=== PATIENT | male | born 1960 | race American Indian/Alaskan Native ===

== ENCOUNTER 2019-06-15 05:58 | Day surgery (SDC) | payer BC, MEDICARE ==
[~2019-06-15 05:58] MED LIST: BUPIVACAINE/PF (0.5%) 5 MG/1 ML 10 ML VIAL INFILTRATI ONE
[2019-06-15] MEDS ORDERED: SODIUM CHLORIDE 0.9% 1000 ML 1,000 ML IV SCH (06:45)
[2019-06-15] MEDS ORDERED: BACTERIOSTATIC SODIUM CHLORIDE 0.9% 30 ML VIAL INFILTRATI ONE (06:47)
[2019-06-15 07:11] LABS: Hematocrit 44.3 % (35.5-45.6); Hemoglobin 14.1 gm/dl (11.8-15.2); Mean Corpuscular HGB Conc 32 % (32-34); Mean Corpuscular Volume 93 fl (84-94); Platelet Count 158 K/mm3 (140-440); Red Blood Count 4.77 M/mm3 (3.65-5.03)
[2019-06-15] MEDS ORDERED: PROTAMINE SULFATE 50 MG/5 ML INJ ONE (07:11)
[2019-06-15] MEDS ORDERED: HEPARIN 10,000 UNITS/10 ML VIAL ONE (07:11)
[2019-06-15] MEDS ORDERED: SODIUM CHLORIDE P/F VIAL 10 ML 10 ML ONE (07:11)
[2019-06-15] MEDS ORDERED: LIDOCAINE (1%) 10 MG/1 ML VIAL 20 ML MDV ONE (07:11)
[2019-06-15] MEDS ORDERED: BUPIVACAINE/PF (0.5%) 5 MG/1 ML 30 ML VIAL INFILTRATI ONE (07:11)
[2019-06-15] MEDS ORDERED: rifAMPin 600 MG VIAL ONE (07:12)
[2019-06-15] MEDS ORDERED: SODIUM CHLORIDE 0.9% 500 ML 500 ML ONE (07:12)
[2019-06-15] MEDS ORDERED: ONDANSETRON 4 MG/2 ML INJ IV PRN (07:13)
[2019-06-15] MEDS ORDERED: fentaNYL 100 MCG/2 ML INJ IV PRN (07:13)
--- NOTE | 2019-06-15 07:13 | Anesthesia Day of Surgery ---
Anesthesia Day of Surgery - Day of Surgery Patient Examined: Yes Patient H&P Reviewed: Yes Patient is NPO: Yes
[2019-06-15] MEDS ORDERED: MIDAZOLAM 2 MG/2 ML INJ IV NR (07:14)
--- NOTE | 2019-06-15 07:15 | Anesthesia Consultation ---
Anesthesia Consult and Med Hx Date of service: 06/15/19 - Airway Anesthetic Teeth Evaluation: Good (Missing), Dentures (Upper) ROM Head & Neck: Adequate Mental/Hyoid Distance: Adequate Mallampati Class: Class II Intubation Access Assessment: Good - Pre-Operative Health Status ASA Pre-Surgery Classification: ASA3 Proposed Anesthetic Plan: General - Pulmonary Hx Smoking: No Hx Sleep Apnea: No (CRUZ PRE SCREEN HIGH RISK.) - Cardiovascular System Hx Hypertension: Yes (X 10 YRS) - Endocrine Hx Renal Disease: Yes Hx End Stage Renal Disease: Yes (Last HD yesterday. Tx; kidney failed) Hx Non-Insulin Dependent Diabetes: No ( Tx-2015) - Hematic Hx Anemia: Yes - Other Systems Hx Substance Use: Yes (OCC MARIJUANA) Hx Cancer: No
[2019-06-15] MEDS ORDERED: FAMOTIDINE 20 MG/2 ML INJ IV NR (07:16)
[2019-06-15 07:21] LABS: Calcium 9.4 mg/dL (8.4-10.2)
[2019-06-15] MEDS ORDERED: ceFAZolin/STERILE WATER 2 GM/20 ML SYRINGE IV NR (08:00)
[2019-06-15 08:04] LABS: Red Cell Distribution Width 24.2 % (13.2-15.2)
[2019-06-15] MEDS ORDERED: LIDOCAINE MPF (2%) 20 MG/1 ML VIAL 5 ML ONE (08:08)
[2019-06-15] MEDS ORDERED: PROPOFOL 200 MG/20 ML VIAL IV ONE (08:08)
[2019-06-15] MEDS ORDERED: fentaNYL 100 MCG/2 ML INJ ONE (08:08)
[2019-06-15] MEDS ORDERED: HYDROmorphone 1 MG/1 ML INJ ONE (08:48)
[2019-06-15] MEDS ORDERED: SODIUM CHLORIDE 0.9% 500 ML IVPB IV ONE (08:50)
[2019-06-15] MEDS ORDERED: HEPARIN 10,000 UNITS/10 ML VIAL IV ONE (08:50)
[2019-06-15] MEDS ORDERED: ePHEDrine SULFATE 50 MG/1 ML INJ ONE (08:58)
[2019-06-15] MEDS ORDERED: SODIUM CHLORIDE 0.9% 100 ML ONE (08:59)
[2019-06-15 09:07] LABS: Basophils % (Manual) 0 % (0.0-1.8); Total Cells Counted 100
[2019-06-15 09:08] LABS: Anisocytosis 2+; Burr Cells 1+; Hypochromasia Few; Target Cells Few
[2019-06-15 09:09] LABS: Platelet Estimate Consistent w Auto; Schistocytes Few
[2019-06-15] MEDS ORDERED: PHENYLEPHRINE/NS 1,000 MCG/10 ML SYRINGE (OR USE) IV ONE (09:21)
[2019-06-15] MEDS ORDERED: BUPIVACAINE/PF (0.5%) 5 MG/1 ML 10 ML VIAL INFILTRATI ONE ×2 (09:23)
[2019-06-15] MEDS ORDERED: ONDANSETRON 4 MG/2 ML INJ ONE (09:30)
--- NOTE | 2019-06-15 09:36 | Short Stay Summary ---
Short Stay Documentation Date of service: 06/15/19 Narrative H&P: See H&P - History H&P: obtained from office - Allergies and Medications Current Medications: Allergies No Known Allergies Allergy (Verified 06/07/19 15:36) Home Medications Medication Instructions Recorded Confirmed Last Taken Type Calcium Acetate [Phoslo] 667 mg PO TID 06/07/19 06/15/19 06/14/19 History NIFEdipine [Nifedipine ER] 90 mg PO DAILY 06/07/19 06/15/19 06/15/19 03:00 History Active Medications Cefazolin Sodium (Ancef/Sterile Water 2 Gm/20 Ml) 2 gm IV PREOP NR Stop: 06/15/19 16:00 Famotidine (Pepcid) 20 mg IV PREOP NR Stop: 06/15/19 14:00 Last Admin: 06/15/19 07:45 Dose: 20 mg Documented by: Fentanyl (Sublimaze) 50 mcg IV Q5MIN PRN PRN Reason: Pain , Severe (7-10) Stop: 06/15/19 20:00 Sodium Chloride (Nacl 0.9% 1000 Ml) 1,000 mls @ 42 mls/hr IV DIRECT CLARIBEL Last Admin: 06/15/19 07:18 Dose: 42 mls/hr Documented by: Midazolam HCl (Versed) 2 mg IV ONCE NR Stop: 06/15/19 14:00 Last Admin: 06/15/19 07:35 Dose: 2 mg Documented by: Ondansetron HCl (Zofran) 4 mg IV ONCE PRN PRN Reason: Nausea And Vomiting Stop: 06/15/19 14:00 - Brief post op/procedure progress note Date of procedure: 06/15/19 Pre-op diagnosis: End-Stage Renal Disease Post-op diagnosis: same Procedure: Creation of Left Liliya Arteriovenous Fistula Anesthesia: GETA, local Surgeon: SOCRATES MAX Estimated blood loss: minimal Pathology: none Condition: stable - Disposition Condition at discharge: Good Disposition: DC-01 TO HOME OR SELFCARE Short Stay Discharge Plan Activity: other (No heavy lifting left arm for 2 weeks. Use stress ball with less than as frequently as possible.) Wound: open to air, keep clean and dry, other (Okay to wash the incision with soap and water but do not soak in water) Follow up with: SOCRATES MAX MD [Staff Physician] - 14 Days Prescriptions: HYDROcodone/APAP 7.5-325 [[place] 7.5/325] 1 each PO Q6HR PRN #40 tablet PRN Reason: Pain
--- NOTE | 2019-06-15 09:38 | Operative Report ---
Operative Report Operative Report: Date of procedure: 06/15/2019 Pre-operative diagnosis: End-Stage Renal Disease Post-operative diagnosis: End-Stage Renal Disease Procedure(s): Creation of Left Liliya Fistula Surgeon: Eric Hughes MD Onion Tier: None Anesthesia: General Endotracheal Anesthesia EBL: Minimal Counts: Correct Complications: None Condition: Stable Findings: Successful creation of left arm AV fistula Specimen: None Indication: The patient is a 58-year-old male with a history of end-stage renal disease with a previous kidney and pancreas transplant. 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 He is in need of long-term dialysis access was found to be a suitable candidate for creation of a left arm arteriovenous. He was given the risks, benefits, and alternative procedures and consented to the procedure. Description of Procedure: The patient was brought to the operating room and laid in supine position after general endotracheal anesthesia was achieved his left arm was prepped and draped in normal sterile fashion. Longitudinal incision was then created on the distal wrist centered over the cephalic vein and a second incision was created in longitudinal fashion over the radial artery. The radial artery was dissected out circumferentially and controlled with vessel loops. The cephalic vein was then dissected out circumferentially, ligating side branches and dividing them, and then a tunnel was created to transpose it over to the radial artery. A 3 Michelle was then advanced through the cephalic vein proximally to ensure patency. The vein was then flushed with heparinized saline and control of the bulldog clamp. The radial artery vessel loops were put on tension occluding flow, and then an 11 blade and Davis scissors used to create an arteriotomy. An [id number] anastomosis created between the cephalic vein and the radial artery using a single 6-0 Prolene in running fashion. Prior to completing the anastomosis I flushed the artery both retrograde and antegrade and advanced a 3 Michelle into the proximal portion of the artery to break the spasm. I then completed the anastomosis and removed all clamps allowing flow into the fistula which had an adequate thrill. I anesthetized wound using 0.5% Marcaine plain. Then closed the wounds in 2 layers using a 3-0 Vicryl running fashion the deep dermal layer, 4-0 Monocryl in a running fashion the subcuticular layer, and Dermabond as a dressing. The patient tolerated the procedure well, all sponge, needle, and instrument counts were correct, the patient was taken to recovery in stable condition.
[2019-06-15] MEDS ORDERED: HEPARIN 1,000 UNIT/1 ML VIAL IV ONE (09:57)
[2019-06-15] MEDS ORDERED: HEPARIN 5,000 UNIT/1 ML VIAL ONE (09:59)
[2019-06-15] MEDS ORDERED: HEPARIN 5,000 UNIT/1 ML VIAL SUB-Q ONE (10:30)
[2019-06-15 11:56] VITALS: BP 140/80
--- NOTE | 2019-06-15 15:03 | Post Anesthesia Evaluation ---
- Post Anesthesia Evaluation Patient Participated: Yes Airway Patent: Yes Stable Respiratory Function: Yes Nausea/Vomiting: No Temp > 96.8F: Yes Pain Manageable: Yes Adequeate Hydration: Yes Anesthesia Complications: No Block Receding Appropriately: Not Applicable Patient on Ventilator: No
== END 2019-06-15 05:59 | disposition home or self-care (01) ==
LOC: OR 05:58
PROVIDERS: ATTEND Surgery Vascular Surgery
DX: I12.0 Hypertensive chronic kidney disease with stage 5 chronic kidney disease or end stage renal disease (principal); E11.22 Type 2 diabetes mellitus with diabetic chronic kidney disease; N18.6 End stage renal disease; Z94.0 Kidney transplant status; Z94.83 Pancreas transplant status; Z79.899 Other long term (current) drug therapy; E78.00 Pure hypercholesterolemia, unspecified; Z99.2 Dependence on renal dialysis; Z90.5 Acquired absence of kidney; Z98.890 Other specified postprocedural states; Z86.2 Personal history of diseases of the blood and blood-forming organs and certain disorders involving the immune mechanism
CPT/HCPCS: 36415; 36818; 80048; 82803; 82962; 85007; 85025; C1757; J0690; J1170; J1644; J2250; J2370; J2405; J2704; J3010; J7030; J7040; J2720; J3490

== ENCOUNTER 2020-12-22 06:27 | Observation (INO) | payer BC, MEDICARE ==
[2020-12-22 09:12] LABS: INR 1.02 (0.87-1.13); Partial Thromboplastin Time 25.2 Sec. (24.2-36.6)
[2020-12-22 09:17] LABS: Calcium 9.4 mg/dL (8.4-10.2)
[2020-12-22 09:29] LABS: Basophils % (Auto) 0.3 % (0.0-1.8); Eosinophils # (Auto) 0.1 K/mm3 (0.0-0.4); Eosinophils % (Auto) 1.6 % (0.0-4.3); Hematocrit 52.7 % (35.5-45.6); Hemoglobin 17.3 gm/dl (11.8-15.2); Lymphocytes # (Auto) 1.3 K/mm3 (1.2-5.4); Lymphocytes % (Auto) 30.3 % (13.4-35.0); Mean Corpuscular HGB Conc 33 % (32-34); Mean Corpuscular Volume 107 fl (84-94); Monocytes # (Auto) 0.6 K/mm3 (0.0-0.8); Monocytes % (Auto) 13.6 % (0.0-7.3); Platelet Count 229 K/mm3 (140-440); Red Blood Count 4.91 M/mm3 (3.65-5.03); Red Cell Distribution Width 16.5 % (13.2-15.2)
[2020-12-22] MEDS ORDERED: INSULIN REGULAR, HUMAN 100 UNITS/1 ML IV ONE (09:57)
--- NOTE | 2020-12-22 09:57 | Emergency Department Report ---
ED General Adult HPI - General Chief complaint: Medical Clearance Stated complaint: CLOGGED PORT FOR DIALYSIS Time Seen by Provider: 12/22/20 09:17 Source: patient Mode of arrival: Ambulatory Limitations: No Limitations - History of Present Illness Initial comments: 60-year-old male, history of ESRD, status post previous kidney and pancreas transplant, presents to ED for evaluation. Patient is on a dialysis schedule. Was last dialyzed 2 days ago on . Patient went for dialysis today and dialysis nurse was unable to access his fistula. Stated that it was clotted and patient needed to come to the ER. Patient has no complaints. Fistula has palpable thrill. -: unknown Location: left, upper extremity Quality: other (Painless) Consistency: constant Improves with: none Worsens with: none Associated Symptoms: denies other symptoms Treatments Prior to Arrival: none - Related Data Home Medications Medication Instructions Recorded Confirmed Last Taken Calcium Acetate [Phoslo] 667 mg PO TID 06/07/19 06/15/19 06/14/19 NIFEdipine [Nifedipine ER] 90 mg PO DAILY 06/07/19 06/15/19 06/15/19 03:00 Previous Rx's Medication Instructions Recorded Last Taken Type HYDROcodone/APAP 7.5-325 [[place] 1 each PO Q6HR PRN #40 tablet 06/15/19 Unknown R x 7.5/325] Allergies Allergy/AdvReac Type Severity Reaction Status Date / Time No Known Allergies Allergy Verified 06/07/19 15:36 ED Review of Systems ROS: Stated complaint: CLOGGED PORT FOR DIALYSIS Other details as noted in HPI Comment: All other systems reviewed and negative Constitutional: denies: fever Gastrointestinal: denies: nausea, vomiting ED Past Medical Hx - Past Medical History Previous Medical History?: Yes Hx Hypertension: Yes (X 10 YRS) Hx Diabetes: Yes (OFF MEDS SINCE PANCREAS TRANSPLANT-2014) Hx Renal Disease: Yes (HD [id number]) Hx HIV: No - Surgical History Past Surgical History?: Yes Additional Surgical History: Left arm fistula, Kidney transplant, Pancreas transplant - Social History Smoking Status: Never Smoker Substance Use Type: Alcohol - Medications Home Medications: Home Medications Medication Instructions Recorded Confirmed Last Taken Type Calcium Acetate [Phoslo] 667 mg PO TID 06/07/19 06/15/19 06/14/19 History NIFEdipine [Nifedipine ER] 90 mg PO DAILY 06/07/19 06/15/19 06/15/19 03:00 History HYDROcodone/APAP 7.5-325 [[place] 1 each PO Q6HR PRN #40 tablet 06/15/19 Unknown Rx 7.5/325] ED Physical Exam - General Limitations: No Limitations General appearance: alert, in no apparent distress - Head Head exam: Present: atraumatic, normocephalic - Eye Eye exam: Present: normal appearance, EOMI - ENT ENT exam: Present: mucous membranes moist - Neck Neck exam: Present: normal inspection - Respiratory Respiratory exam: Present: normal lung sounds bilaterally. Absent: respiratory distress - Cardiovascular Cardiovascular Exam: Present: regular rate, normal rhythm, other (Palpable thrill in left arm fistula) - GI/Abdominal GI/Abdominal exam: Present: soft. Absent: distended, tenderness - Extremities Exam Extremities exam: Present: normal inspection - Neurological Exam Neurological exam: Present: alert, oriented X3 - Psychiatric Psychiatric exam: Present: normal affect, normal mood - Skin Skin exam: Present: warm, dry, intact, normal color ED Course Vital Signs 12/22/20 12/22/20 12/22/20 07:25 09:20 09:31 Temperature 98.2 F Pulse Rate 74 68 69 Respiratory 20 15 17 Rate Blood Pressure 111/73 108/69 O2 Sat by Pulse 99 Oximetry 12/22/20 12/22/20 12/22/20 09:45 10:01 10:15 Temperature Pulse Rate 67 67 69 Respiratory 20 18 11 L Rate Blood Pressure 108/69 110/66 110/66 O2 Sat by Pulse 98 97 100 Oximetry 12/22/20 12/22/20 12/22/20 10:31 10:45 11:30 Temperature 97.2 F L Pulse Rate 74 75 74 Respiratory 18 13 16 Rate Blood Pressure 110/66 110/66 106/65 O2 Sat by Pulse 77 L Oximetry 12/22/20 12/22/20 12/22/20 11:45 12:00 12:15 Temperature Pulse Rate 72 75 81 Respiratory Rate Blood Pressure 113/68 112/66 110/72 O2 Sat by Pulse Oximetry 12/22/20 12/22/20 12/22/20 12:30 12:45 13:00 Temperature Pulse Rate 89 88 90 Respiratory Rate Blood Pressure 104/66 107/64 113/64 O2 Sat by Pulse Oximetry - Reevaluation(s) Reevaluation #1: 12/22/20 09:57 Blood sample not hemolyzed per superintendent geophysical laboratory. Reevaluation #2: 12/22/20 11:12 Dialysis nurse evaluated patient's fistula. There is a palpable thrill and audible thrill. States he will be able to be dialyzed. She will take patient to be dialyzed at this time. - Consultations Consultation #1: 12/22/20 10:[address] Duncan, nephrology. She will see the patient. Consultation #2: 12/22/20 10:[address] Ag, vascular surgery. He will see the patient. ED Medical Decision Making - Lab Data Result diagrams: 12/22/20 08:11 12/22/20 08:11 - Medical Decision Making 60-year-old male, history of ESRD, status post previous kidney and pancreas transplant, presents to ED for evaluation. Patient is on a dialysis schedule. Was last dialyzed 2 days ago on . Patient went for dialysis today and dialysis nurse was unable to access his fistula. Stated that it was clotted and patient needed to come to the ER. Patient has no complaints. Fistula has palpable thrill. Patient states he has not missed any dialysis appointments, however potassium is 6.8. Lab states no hemolysis present. Insulin, D50, calcium chloride, Kayexalate ordered. I spoke with repair manager to get patient dialyzed. I spoke with Dr. Ag, vascular surgeon. Fistula has palpable thrill. Dialysis n muriel has come down to evaluate patient and believes he will be able to be dialyzed. Patient will be admitted by hospitalist, Dr. Calvo, for further management. - Differential Diagnosis Hyperkalemia, dialysis access malfunction Critical Care Time: Yes Critical care time in (mins) excluding proc time.: 35 Critical care attestation.: If time is entered above; I have spent that time in minutes in the direct care of this critically ill patient, excluding procedure time. Critical Care Time: 35 min ED Disposition Clinical Impression: Hyperkalemia, ESRD needing dialysis, Dialysis AV fistula malfunction Disposition: OP ADMIT IP TO THIS HOSP Is pt being admited?: Yes Condition: Stable Referrals: PRIMARY CARE, [Primary Care Provider] - 3-5 Days Time of Disposition: 10:49
[2020-12-22] MEDS ORDERED: DEXTROSE 50% IN WATER (25GM) 50 ML SYRINGE IV ONE (09:58)
[2020-12-22] MEDS ORDERED: SODIUM POLYSTYRENE 15 GM/60 ML ORAL LIQD PO ONE (10:05)
[2020-12-22] MEDS ORDERED: CALCIUM GLUCONATE 1,000 MG in SODIUM CHLORIDE 0.9% 100 ML IV ONE (11:00)
[2020-12-22] MEDS ORDERED: SODIUM CHLORIDE 0.9% 100 ML IV PRN ×2 (11:27→14:48)
[2020-12-22 12:38] LABS: Hepatitis B Surface Antigen Non-Reactive (Negative); Hepatitis C Virus Antibody Non-Reactive (NonReactive)
--- NOTE | 2020-12-22 20:03 | Consultation ---
History of Present Illness - Reason for Consult Consult date: 12/22/20 end stage renal disease, hyperkalemia - History of Present Illness This is a 60-year-old man with end-stage renal disease on hemodialysis who presented to his dialysis unit today for routine dialysis and was sent to the emergency department as he were unable to cannulate his access. Upon presentation to the emergency department he was noted to have severe hyperkalemia. Nephrology was consulted for ESRD management. Patient denies chest pain, diaphoresis, presyncope and syncope Medications and Allergies Allergies Allergy/AdvReac Type Severity Reaction Status Date / Time No Known Allergies Allergy Verified 06/07/19 15:36 Home Medications Medication Instructions Recorded Confirmed Last Taken Type Calcium Acetate [Phoslo] 667 mg PO TID 06/07/19 06/15/19 06/14/19 History NIFEdipine [Nifedipine ER] 90 mg PO DAILY 06/07/19 06/15/19 06/15/19 03:00 History HYDROcodone/APAP 7.5-325 [[place] 1 each PO Q6HR PRN #40 tablet 06/15/19 Unknown Rx 7.5/325] Active Meds: Active Medications Sodium Chloride (Nacl 0.9%) 100 mls @ 999 mls/hr IV SAW PRN PRN Reason: Hypotension Sodium Chloride (Nacl 0.9%) 100 mls @ 999 mls/hr IV SAW PRN PRN Reason: Hypotension Pneumococcal Polyvalent Vaccine (Pneumococcal 23 Valent 0.5 Ml Vial) 0.5 ml IM .ONCE ONE Stop: 12/23/20 12:01 Review of Systems Constitutional: no fever Ears, nose, mouth and throat: no nasal congestion, no nasal discharge Cardiovascular: no chest pain, no orthopnea Respiratory: no shortness of breath Gastrointestinal: no nausea, no vomiting Musculoskeletal: no muscle weakness, no muscle cramps Integumentary: no rash, no pruritis Neurological: no weakness, no parathesias Psychiatric: no memory loss Hematologic/Lymphatic: no easy bruising, no easy bleeding Allergic/Immunologic: no wheezing Exam - Vital Signs Vital signs: Vital Signs Temp Pulse Resp BP Pulse Ox 98.2 F 74 20 111/73 99 12/22/20 07:25 12/22/20 07:25 12/22/20 07:25 12/22/20 07:25 12/22/20 07:25 - Physical Exam Narrative exam: General: No acute distress HEENT: Oral mucosa moist Neck: Supple, no JVD Chest: Clear to auscultation bilaterally Heart: RRR, S1 and S2, no pericardial rub Abdomen: Soft, nontender, no renal bruit Extremity: No peripheral cyanosis, edema Neurological: Alert, awake, no asterixis Dermatology: No skin rash Psych: No agitation Musculoskeletal: No joint effusion Results - Lab Results 12/22/20 08:11 12/22/20 18:36 Most recent lab results Calcium 9.4 mg/dL (8.4-10.2) 12/22/20 08:11 Assessment and Plan Assessment - End-stage renal disease on hemodialysis - Hyperkalemia - Hyponatremia - Hyperparathyroidism - Hyperphosphatemia Recommendations - HD nurse was able to cannulate access without issues, seen during dialysis - Monitor labs and volume status daily and assess need for additional dialysis session - No indication for Epogen with HD - Continue phosphorus binders if applicable - ESRD diet with 1.4 g/kg per day protein - Renally dose medication for creatinine clearance less than 15 cc/min
[2020-12-22 21:56] VITALS: BP 82/53
--- NOTE | 2020-12-22 22:40 | History and Physical Report ---
History of Present Illness Date of examination: 12/22/20 Date of admission: 12/22/20 14:20 Chief complaint: AV fistula not accessible-has missed dialysis History of present illness: 60-year-old male with history of end-stage renal disease status post kidney transplant and pancreatic transplant comes in for emergency room for hemodialysis. Patient missed hemodialysis because his the hemodialysis nurse was unable to access his fistula. Patient states that he was clotted and needed to come to the ER. In the ER fistula could be accessed. Patient underwent hemodialysis - Past Medical History Previous Medical History?: Yes Hx Hypertension: Yes (X 10 YRS) Hx Diabetes: Yes (OFF MEDS SINCE PANCREAS TRANSPLANT-2014) Hx Renal Disease: Yes (HD ) post access of the fistula. - Surgical History Past Surgical History?: Yes Additional Surgical History: Left arm fistula, Kidney transplant, Pancreas transplant - Social History Smoking Status: Never Smoker Substance Use Type: Alcohol - Medications Home Medications: Home Medications Medication Instructions Recorded Confirmed Last Taken Type Calcium Acetate [Phoslo] 667 mg PO TID 06/07/19 06/15/19 06/14/19 History NIFEdipine [Nifedipine ER] 90 mg PO DAILY 06/07/19 06/15/19 06/15/19 03:00 History HYDROcodone/APAP 7.5-325 [[place] 1 each PO Q6HR PRN #40 tablet 06/15/19 Unknown Rx 7.5/325] Review of Systems ROS: Stated complaint: CLOGGED PORT FOR DIALYSIS Other details as noted in HPI Comment: All other systems reviewed and negative Constitutional: denies: fever Gastrointestinal: denies: nausea, vomiting Medications and Allergies Allergies Allergy/AdvReac Type Severity Reaction Status Date / Time No Known Allergies Allergy Verified 06/07/19 15:36 Home Medications Medication Instructions Recorded Confirmed Last Taken Type Calcium Acetate [Phoslo] 667 mg PO TID 06/07/19 06/15/19 06/14/19 History NIFEdipine [Nifedipine ER] 90 mg PO DAILY 06/07/19 06/15/19 06/15/19 03:00 History HYDROcodone/APAP 7.5-325 [[place] 1 each PO Q6HR PRN #40 tablet 06/15/19 Unknown Rx 7.5/325] Active Meds: Active Medications Sodium Chloride (Nacl 0.9%) 100 mls @ 999 mls/hr IV SAW PRN PRN Reason: Hypotension Sodium Chloride (Nacl 0.9%) 100 mls @ 999 mls/hr IV SAW PRN PRN Reason: Hypotension Pneumococcal Polyvalent Vaccine (Pneumococcal 23 Valent 0.5 Ml Vial) 0.5 ml IM .ONCE ONE Stop: 12/23/20 12:01 Exam - Constitutional Vitals: Temp Pulse Resp BP Pulse Ox 98.3 F 90 18 82/53 97 12/22/20 21:55 12/22/20 21:55 12/22/20 21:55 12/22/20 21:55 12/22/20 21:55 General appearance: Present: no acute distress, well-nourished - EENT Eyes: Present: PERRL ENT: hearing intact, clear oral mucosa - Neck Neck: Present: supple, normal ROM - Respiratory Respiratory effort: normal Respiratory: bilateral: CTA - Cardiovascular Heart rate: 78 Heart Sounds: Present: S1 & S2. Absent: rub, click - Extremities Extremities: pulses symmetrical, No edema Peripheral Pulses: within normal limits - Abdominal General gastrointestinal: Present: soft, non-tender, non-distended, normal bowel sounds Male genitourinary: Present: normal - Integumentary Integumentary: Present: clear, warm, dry - Musculoskeletal Musculoskeletal: gait normal, strength equal bilaterally - Psychiatric Psychiatric: appropriate mood/affect, intact judgment & insight - Neurologic Neurologic: CNII-XII intact, moves all extremities Results - Labs CBC & Chem 7: 12/22/20 08:11 12/22/20 18:36 Labs: Laboratory Last Values WBC 4.3 K/mm3 (4.5-11.0) L 12/22/20 08:11 RBC 4.91 M/mm3 (3.65-5.03) 12/22/20 08:11 Hgb 17.3 gm/dl (11.8-15.2) H 12/22/20 08:11 Hct 52.7 % (35.5-45.6) H 12/22/20 08:11 MCV 107 fl (84-94) H 12/22/20 08:11 MCH 35 pg (28-32) H 12/22/20 08:11 MCHC 33 % (32-34) 12/22/20 08:11 RDW 16.5 % (13.2-15.2) H 12/22/20 08:11 Plt Count 229 K/mm3 (140-440) 12/22/20 08:11 Lymph % (Auto) 30.3 % (13.4-35.0) 12/22/20 08:11 [place] % (Auto) 13.6 % (0.0-7.3) H 12/22/20 08:11 Eos % (Auto) 1.6 % (0.0-4.3) 12/22/20 08:11 Baso % (Auto) 0.3 % (0.0-1.8) 12/22/20 08:11 Lymph # (Auto) 1.3 K/mm3 (1.2-5.4) 12/22/20 08:11 [place] # (Auto) 0.6 K/mm3 (0.0-0.8) 12/22/20 08:11 Eos # (Auto) 0.1 K/mm3 (0.0-0.4) 12/22/20 08:11 Baso # (Auto) 0.0 K/mm3 (0.0-0.1) 12/22/20 08:11 Seg Neutrophils % 54.2 % (40.0-70.0) 12/22/20 08:11 Seg Neutrophils # 2.3 K/mm3 (1.8-7.7) 12/22/20 08:11 PT 13.9 Sec. (12.2-14.9) 12/22/20 08:11 INR 1.02 (0.87-1.13) 12/22/20 08:11 APTT 25.2 Sec. (24.2-36.6) 12/22/20 08:11 Sodium 134 mmol/L (137-145) L 12/22/20 08:11 Potassium 5.0 mmol/L (3.6-5.0) D 12/22/20 18:36 Chloride 89.7 mmol/L (98-107) L 12/22/20 08:11 Carbon Dioxide 25 mmol/L (22-30) 12/22/20 08:11 Anion Gap 26 mmol/L 12/22/20 08:11 BUN 55 mg/dL (9-20) H 12/22/20 08:11 Creatinine 15.6 mg/dL (0.8-1.3) H 12/22/20 08:11 Estimated GFR 4 ml/min 12/22/20 08:11 BUN/Creatinine Ratio 4 % 12/22/20 08:11 Glucose 115 mg/dL (75-100) H 12/22/20 08:11 Calcium 9.4 mg/dL (8.4-10.2) 12/22/20 08:11 Hepatitis A IgM Ab Non-reactive (NonReactive) 12/22/20 11:34 Hep Bs Antigen Non-reactive (Negative) 12/22/20 11:34 Hep B Core IgM Ab Non-reactive (NonReactive) 12/22/20 11:34 Hepatitis C Antibody Non-reactive (NonReactive) 12/22/20 11:34 Short CBC 12/22/20 Range/Units 08:11 WBC 4.3 L (4.5-11.0) K/mm3 Hgb 17.3 H (11.8-15.2) gm/dl Hct 52.7 H (35.5-45.6) % Plt Count 229 (140-440) K/mm3 BMP 12/22/20 12/22/20 08:11 18:36 Sodium 134 L Potassium 6.8 H* 5.0 D Chloride 89.7 L Carbon Dioxide 25 BUN 55 H Creatinine 15.6 H Glucose 115 H Calcium 9.4 Assessment and Plan Assessment and plan: Full code Advance Directives: Yes (Full code) VTE prophylaxis?: Chemical Plan of care discussed with patient/family: Yes - Patient Problems (1) Dialysis AV fistula malfunction Current Visit: Yes Status: Acute Qualifiers: Encounter type: initial encounter Qualified Code(s): T82.590A - Other mechanical complication of surgically created arteriovenous fistula, initial encounter Plan to address problem: Patient's AV fistula could be accessed Patient is going for hemodialysis (2) Hypertension Current Visit: Yes Status: Chronic Qualifiers: Hypertension type: essential hypertension Qualified Code(s): I10 - Essential (primary) hypertension Plan to address problem: Continue antihypertensives and adjust medications (3) T2DM (type 2 diabetes mellitus) Current Visit: Yes Status: Chronic Qualifiers: Diabetes mellitus senior care insulin use: unspecified director long term care insulin use status Plan to address problem: Coverage for now (4) ESRD needing dialysis Current Visit: Yes Status: Chronic Plan to address problem: Dialysis requested (5) DVT prophylaxis Current Visit: Yes Status: Acute Plan to address problem: Patient on heparin and GI prophylaxis
--- NOTE | 2020-12-22 22:46 | Discharge Summary ---
Providers - Providers Date of Admission: 12/22/20 14:20 Date of discharge: 12/22/20 Attending physician: CARLI WILCOX 12/22/20 10:45 Consult to Physician [CONS] Stat Comment: Consulting Provider: KARIN DENG Physician Instructions: Reason For Exam: hyperkalemia 12/22/20 10:50 Consult to Physician [CONS] Stat Comment: Consulting Provider: CHENG MAGAÑA Physician Instructions: Reason For Exam: fistula malfunction Primary care physician: [employer] Hospitalization Condition: Stable Hospital course: History of present illness: 60-year-old male with history of end-stage renal disease status post kidney transplant and pancreatic transplant comes in for emergency room for hemodialysis. Patient missed hemodialysis because his the hemodialysis nurse was unable to access his fistula. Patient states that he was clotted and needed to come to the ER. In the ER fistula could be accessed. Patient underwent hemodialysis Assessment and Plan Assessment and plan: Full code Advance Directives: Yes (Full code) VTE prophylaxis?: Chemical Plan of care discussed with patient/family: Yes - Patient Problems (1) Dialysis AV fistula malfunction Current Visit: Yes Status: Acute Qualifiers: Encounter type: initial encounter Qualified Code(s): T82.590A - Other mechanical complication of surgically created arteriovenous fistula, initial encounter Plan to address problem: Patient's AV fistula could be accessed Patient is going for hemodialysis (2) Hypertension Current Visit: Yes Status: Chronic Qualifiers: Hypertension type: essential hypertension Qualified Code(s): I10 - Essential (primary) hypertension Plan to address problem: Continue antihypertensives and adjust medications (3) T2DM (type 2 diabetes mellitus) Current Visit: Yes Status: Chronic Qualifiers: Diabetes mellitus exterminator helper termite insulin use: unspecified exterminator helper termite insulin use status Plan to address problem: Coverage for now (4) ESRD needing dialysis Current Visit: Yes Status: Chronic Plan to address problem: Dialysis requested (5) DVT prophylaxis Current Visit: Yes Status: Acute Plan to address problem: Patient on heparin and GI prophylaxis Disposition: TO HOME OR SELFCARE Final Discharge Diagnosis (Prints w/discharge instructions): AV fistula malfunction. End-stage renal disease needing hemodialysis. Hyperkalemia. Htn - Discharge Diagnoses (1) Dialysis AV fistula malfunction Status: Acute Qualifiers: Encounter type: initial encounter Qualified Code(s): T82.590A - Other mechanical complication of surgically created arteriovenous fistula, initial encounter (2) Hypertension Status: Chronic Qualifiers: Hypertension type: essential hypertension Qualified Code(s): I10 - Essential (primary) hypertension (3) T2DM (type 2 diabetes mellitus) Status: Chronic Qualifiers: Diabetes mellitus exterminator helper termite insulin use: unspecified alf insulin use status (4) ESRD needing dialysis Status: Chronic (5) DVT prophylaxis Status: Acute Core Measure Documentation - Palliative Care Palliative Care/ Comfort Measures: Not Applicable - Core Measures Any of the following diagnoses?: none Exam - Constitutional Vitals: Temp Pulse Resp BP Pulse Ox 98.3 F 90 18 82/53 97 12/22/20 21:55 12/22/20 21:55 12/22/20 21:55 12/22/20 21:55 12/22/20 21:55 General appearance: Present: no acute distress, well-nourished - EENT Eyes: Present: PERRL ENT: hearing intact, clear oral mucosa - Neck Neck: Present: supple, normal ROM - Respiratory Respiratory effort: normal Respiratory: bilateral: CTA - Cardiovascular Heart rate: 66 Rhythm: regular Heart Sounds: Present: S1 & S2. Absent: rub, click - Extremities Extremities: no ischemia, pulses intact, pulses symmetrical, No edema Peripheral Pulses: within normal limits - Abdominal General gastrointestinal: Present: soft, non-tender, non-distended, normal bowel sounds Male genitourinary: Present: normal - Integumentary Integumentary: Present: clear, warm, dry - Musculoskeletal Musculoskeletal: gait normal, strength equal bilaterally - Psychiatric Psychiatric: appropriate mood/affect, intact judgment & insight - Neurologic Neurologic: CNII-XII intact, moves all extremities - Allied Health Allied health notes reviewed: nursing, case management Plan Activity: no restrictions Diet: renal (Now okay) Follow up with: PRIMARY CAREMD [Primary Care Provider] - 3-5 Days
--- NOTE | 2020-12-23 09:23 | Event Note ---
Date: 12/22/20 Initially consulted on patient for dialysis access malfunction from the ER. Came to see and assess patient. The patient had been also assessed by the dialysis nurse who found that the patient had a palpable thrill. Evaluated the patient while the patient was in dialysis and the patient has a palpable thrill with a left Liliya fistula. No apparent dialysis access malfunction. Left instructions with dialysis nurse to reach out if there were any issues.
[2020-12-23] MEDS ORDERED: PNEUMOCOCCAL 23 Valent 0.5 ML VIAL IM ONE (12:00)
== END 2020-12-22 23:14 | disposition home or self-care (01) ==
LOC: ED 06:27 → INTOOBSV 14:20 → 3A 14:20
PROVIDERS: ADMIT Internal Medicine; ATTEND Internal Medicine
DX: T82.590A Other mechanical complication of surgically created arteriovenous fistula, initial encounter (principal); I12.0 Hypertensive chronic kidney disease with stage 5 chronic kidney disease or end stage renal disease; N18.6 End stage renal disease; E11.22 Type 2 diabetes mellitus with diabetic chronic kidney disease; E87.5 Hyperkalemia; E87.1 Hypo-osmolality and hyponatremia; E21.3 Hyperparathyroidism, unspecified; Z99.2 Dependence on renal dialysis; Z79.4 Long term (current) use of insulin; Z79.899 Other long term (current) drug therapy; Z98.890 Other specified postprocedural states
CPT/HCPCS: 36415; 80048; 80074; 84132; 85025; 85610; 85730; 96374; 96375; 99291; G0257; G0378; J0610; J1815